=== PATIENT | male | born 1975 | race American Indian/Alaskan Native ===

== ENCOUNTER 2020-12-10 09:06 | Emergency (ER) | payer SELFPAY ==
[2020-12-10 09:15] VITALS: BP 138/76
[2020-12-10] MEDS ORDERED: CYCLOBENZAPRINE 10 MG TAB PO ONE (10:39)
[2020-12-10] MEDS ORDERED: ACETAMINOPHEN 500 MG TAB PO ONE (10:39)
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
== END 2020-12-10 12:35 | disposition home or self-care (01) ==
LOC: ED 09:06
DX: S16.1XXA Strain of muscle, fascia and tendon at neck level, initial encounter (principal); S09.90XA Unspecified injury of head, initial encounter; F12.90 Cannabis use, unspecified, uncomplicated; J45.909 Unspecified asthma, uncomplicated; Z79.899 Other long term (current) drug therapy; Z87.891 Personal history of nicotine dependence; V49.49XA Driver injured in collision with other motor vehicles in traffic accident, initial encounter; Y92.410 Unspecified street and highway as the place of occurrence of the external cause; Y93.89 Activity, other specified; Y99.8 Other external cause status
CPT/HCPCS: 70450; 72125; 99283